=== PATIENT | female | born 1945 | race Caucasian/White ===

== ENCOUNTER 2017-03-12 16:23 | Outpatient (CLI) | payer MEDICARE, BC ==
--- NOTE | 2017-03-14 20:48 | Mammography Report ---
DIGITAL SCREENING MAMMOGRAM: 03/12/2017 CLINICAL INDICATION: A 71-year-old nulliparous patient for screening. COMPARISON: 05/2014, 05/2013, 03/2012, 12/2010. TECHNIQUE: Routine CC and MLO projections were obtained of the breasts. The breasts again demonstrate scattered fibroglandular densities bilaterally. Punctate, typically be nign calcifications are present. No suspicious masses, clustered microcalcifications, or regions of architectural distortion are identified. IMPRESSION: BENIGN FINDINGS. RECOMMENDATION: ROUTINE ANNUAL SCREENING UNLESS OTHERWISE CLINICALLY INDICATED. BIRADS CATEGORY: 2, BENIGN FINDINGS. STANDARD QUALIFYING STATEMENTS 1. This examination was reviewed with the aid of Computed-Aided Detection (CAD). 2. A negative or benign imaging report should not delay biopsy if clinically suspicious findings are present. Consider surgical consultation if warranted. More than 5% of cancers are not identified b y imaging. 3. Dense breasts may obscure an underlying neoplasm. JOB #: [id number] EXT JOB #:[id number]
== END 2017-03-12 16:24 | disposition home or self-care (01) ==
LOC: DI 16:23
PROVIDERS: ATTEND Family Medicine
DX: Z12.31 Encounter for screening mammogram for malignant neoplasm of breast (principal)
CPT/HCPCS: 77067

== ENCOUNTER 2018-09-05 13:09 | Outpatient (CLI) | payer MEDICARE, BC | END 2018-09-05 13:10 | disposition home or self-care (01) | LOC: LAB.F 13:09 | PROVIDERS: ATTEND Family Medicine | DX: E03.9 Hypothyroidism, unspecified (principal) | CPT/HCPCS: 36415; 84443 ==

== ENCOUNTER 2022-03-22 11:19 | Outpatient (CLI) | payer MEDICARE, BC ==
--- NOTE | 2022-03-23 10:37 | Mammography Report ---
BILATERAL DIGITAL SCREENING MAMMOGRAM 3D/2D WITH EXAGGERATED CC: 03/22/2022 CLINICAL: Routine screening. Comparison is made to exams dated: 03/12/2017 mammogram and 05/21/2014 mammogram - [facility]. There are scattered areas of fibroglandular density in both breasts (category b / 25%-50% glandular t issue). No significant masses, calcifications, or other findings are seen in either breast. There has been no significant interval change. IMPRESSION: NEGATIVE There is no mammographic evidence of malignancy. A 1 year screening mammogram is recommended. Based on the Tyrer Cuzick model (a risk assessment model) the patients lifetime risk is 5.4% and her 10 year risk is 4.9%. According to the ACR, ACS, and NCCN guidelines, an annual breast MRI exam felicia g with mammogram is recommended if the patients lifetime risk is 20% or greater. This exam was interpreted at Station ID: [id number]. NOTE: For mammograms, a report in lay terms will be sent to the patient. Approximately 15% of breast malignancies will not be visualized mammographically. In the management of a palpable breast mass, a negative mammogram must not discourage biopsy of a clinically suspicious lesion. Electronically Signed By: Robert crooks/denisse:03/22/2022 13:02:02 ACR BI-RADS Category 1: Negative 3341F PARENCHYMAL PATTERN: (A) - The breast(s) demonstrate(s) scattered fibroglandular densities. BI-RADS CATEGORY: (1) - 1 RECOMMENDATION: (ANNUAL) - Recommend routine annual screening mammography. [id number] 1 year screening LATERALITY: (B)
== END 2022-03-22 11:20 | disposition home or self-care (01) ==
LOC: DI 11:19
DX: Z12.31 Encounter for screening mammogram for malignant neoplasm of breast (principal)

== ENCOUNTER 2022-06-01 07:57 | Outpatient (CLI) | payer MEDICARE, BC ==
--- NOTE | 2022-06-01 11:41 | Ultrasound Report ---
PROCEDURE: Pelvic w/Transvaginal INDICATIONS: POSTMENOPAUSAL BLEEDING TECHNIQUE: Real-time scanning was performed of the pelvic organs, with image documentation. Additional endovagi nal scanning was necessary due to incomplete visualization of the adnexal and endometrial structures by transabdominal scanning. COMPARISON: None. FINDINGS: Uterus: Uterus is anteverted and normal in size at 7.2 x 4.2 x 6 cm. The myometrium is heterogeneou s. The endometrium measures 22 mm in combined thickness. The endometrium is heterogeneous and thick ened. This signal does not appear to extend beyond the myometrium. A nabothian cyst is present. Ovaries: Ovaries not visualized due to overlying bowel gas. Other: No pathologic free abdominal or pelvic fluid. IMPRESSION: Thickened and heterogeneous endometrium, measuring 22 mm. Abnormal signal does not exten d beyond the myometrium. Recommend tissue sampling, as malignancy and hyperplasia are considerations. Reviewed by: Davonte Alexander on 06/01/2022 11:39 AM PST Approved by: Davonte Alexander on 06/01/2022 11:39 AM PST Station ID: [id number]
== END 2022-06-01 07:58 | disposition home or self-care (01) ==
LOC: DI 07:57
PROVIDERS: ATTEND Obstetrics & Gynecology
DX: R93.89 Abnormal findings on diagnostic imaging of other specified body structures (principal); N95.0 Postmenopausal bleeding

== ENCOUNTER 2022-06-19 09:55 | Day surgery (SDC) | payer MEDICARE, BC ==
[~2022-06-19 09:55] MED LIST: miSOPROStoL 200 MCG TABLET ONE
[2022-06-19] MEDS ORDERED: LACTATED RINGERS 1,000 ML IV ONE ×2 (09:57→12:01)
[2022-06-19] MEDS ORDERED: fentaNYL 100 MCG/2 ML VIAL ONE ×2 (10:44→12:23)
[2022-06-19] MEDS ORDERED: PROPOFOL 200 MG/20 ML VIAL IVP ONE ×2 (10:45→11:26)
[2022-06-19] MEDS ORDERED: ONDANSETRON 4 MG/2 ML VIAL ONE (10:45)
[2022-06-19] MEDS ORDERED: DEXAMETHASONE 4 MG/ML VIAL ONE (10:45)
--- NOTE | 2022-06-19 10:47 | ANESTHESIA ---
Pre-Anesthesia VS, & Labs - Diagnosis post menopausal bleeding - Procedure hysteroscopy, D&C Vital Signs: Temp Pulse Resp BP Pulse Ox O2 Flow Rate 36.5 C 85 16 181/89 H 99 06/19/22 10:04 06/19/22 10:04 06/19/22 10:04 06/19/22 10:04 06/19/22 10:04 Height: 5 ft 7 in Weight (kg): 108 kg Body Mass Index: 37.3 BMI Classification: Obese - NPO >8 hours - Is Patient ?: No Home Medications and Allergies Levothyroxine Sodium [Synthroid] 137 mcg PO DAILY 04/25/17 Allergies/Adverse Reactions: Allergies Allergy/AdvReac Type Severity Reaction Status Date / Time No Known Drug Allergies Allergy Verified 06/12/22 13:54 Anes History & Medical History - Anesthetic History Anesthesia Complications: reports: No previous complications Family history of Anesthesia Complications: Denies Family history of Malignant Hyperthermia: Denies - Medical History Cardiovascular: reports: Hypertension Pulmonary: reports: None Gastrointestinal: reports: Colon polyps Urinary: reports: None Musculoskeletal: reports: Osteoarthritis Endocrine/Autoimmune: reports: HyPOthyroidism Skin: reports: None - Surgical History General: reports: Colonoscopy Eyes Ears Nose Throat (EENT): reports: Tonsil/Adenoidectomy Gynecologic: reports: Dilation and currettage Exam General: Alert, Oriented x3, Cooperative Dental: WNL Mouth Openin Fingerbreadth Neck Mobility: Normal Mallampati classification: II Thyromental Distance: less than 4 cm Respiratory: Lungs clear Cardiovascular: Regular rate Plan Anesthesia Type: General Consent for Procedure(s) Verified and Reviewed: Yes Code Status: Attempt Resuscitation ASA classification: 2-Mild systemic disease Is this case an emergency?: No
[2022-06-19] MEDS ORDERED: METOCLOPRAMIDE 10 MG/2 ML VIAL IVP PRN (10:50)
[2022-06-19] MEDS ORDERED: HYDROmorphone 0.5 MG/0.5 ML SYRINGE IVP PRN (10:50)
[2022-06-19] MEDS ORDERED: fentaNYL 100 MCG/2 ML VIAL IVP PRN (10:50)
[2022-06-19] MEDS ORDERED: MORPHINE 2 MG/ML CARPUJECT IVP PRN (10:50)
[2022-06-19] MEDS ORDERED: ePHEDrine 50 MG/ML VIAL IVP PRN (10:50)
[2022-06-19] MEDS ORDERED: ATROPINE ABBOJECT 1 MG/10 ML SYRINGE IVP PRN (10:50)
[2022-06-19] MEDS ORDERED: NALOXONE 0.4 MG/ML VIAL IVP PRN (10:50)
[2022-06-19] MEDS ORDERED: ONDANSETRON 4 MG/2 ML VIAL IVP PRN (10:50)
[2022-06-19] MEDS ORDERED: LACTATED RINGERS 1,000 ML IV SCH (11:00)
--- NOTE | 2022-06-19 12:23 | OPERATIVE REPORT ---
Operative Report - General Procedure Date: 06/19/22 Planned Procedure: Dilation, curettage, hysteroscopy Pre-Op Diagnosis: Postmenopausal bleeding, thickened endometrium Procedure Performed: Dilation, curettage, hysteroscopy Post Op Diagnosis: Postmenopausal bleeding, thickened endometrium - Procedure Note Primary Surgeon: Izabel Xavier DO Anesthesia Provider: Karen Canales CRNA Pathology: Endometrial curettings Estimated Blood Loss (mL): 20 Indications: Postmenopausal bleeding, thickened endometrium Findings: Polypoid tissue, proliferative endometrium Complications: None - Other Other Information/Narrative: Patient taken to OR where anesthesia obtained without difficulty. Placed in dorsal lithotomy position in Blaine stirrups. Prepped and draped in sterile fashion. Price catheter inserted and bladder drained and catheter removed. Matheny speculum placed in vagina. Posterior lip of cervix grasped with single tooth tenaculum. Uterus sounded to 8cm. Cervix dilated to accommodate Myosure hysteroscope. Hysteroscope introduced into cavity and aforementioned findings noted. Lite device used to obtained EMC and remove polypoid tissue. Hysteroscope removed. Sharp curettage performed. Tenaculum removed, hemostasis. Speculum removed. Tolerated procedure well. Counts correct x2. Taken to PACU in stable condition. Fluid deficit 50cc.
[2022-06-19 13:15] VITALS: BP 182/78
--- NOTE | 2022-06-20 08:06 | ANESTHESIA POST OP EVALUATION ---
Anesthesia Post Eval - Post Anesthesia Eval Vitals: Last Vital Signs Temp 36.2 C L 06/19/22 13:13 Pulse 69 06/19/22 13:13 Resp 16 06/19/22 13:13 BP 182/78 H 06/19/22 13:13 Pulse Ox 97 06/19/22 13:13 O2 Flow Rate CV Function Including HR & BP: Stable Pain Control: Satisfactory Nausea & Vomiting: Negative Mental Status: Baseline Respiratory Status: Airway Patent Hydration Status: Satisfactory Anesthesia Complications: None
== END 2022-06-19 09:56 | disposition home or self-care (01) ==
LOC: SDS 09:55
PROVIDERS: ATTEND Obstetrics & Gynecology
PROC: 0UDB8ZZ Extraction of Endometrium, Via Natural or Artificial Opening Endoscopic (ICD-10-PCS; principal; 2022-06-19 11:30)
DX: C54.1 Malignant neoplasm of endometrium (principal); E03.9 Hypothyroidism, unspecified; I10 Essential (primary) hypertension; E66.9 Obesity, unspecified; Z68.37 Body mass index [BMI] 37.0-37.9, adult; Z87.891 Personal history of nicotine dependence
CPT/HCPCS: 58558; A9270; J7120

== ENCOUNTER 2022-07-10 12:01 | Outpatient (CLI) | payer MEDICARE, BC | END 2022-07-10 12:02 | disposition home or self-care (01) | LOC: RT 12:01 | PROVIDERS: ATTEND Obstetrics & Gynecology Gynecologic Oncology | DX: Z01.818 Encounter for other preprocedural examination (principal) | CPT/HCPCS: 93005 ==

== ENCOUNTER 2023-05-08 10:04 | Outpatient (CLI) | payer MEDICARE, BC ==
[2023-05-08 10:30] LABS: BASOPHILS # (AUTO) 0.1 10^3/uL (0.0-0.1); BASOPHILS % (AUTO) 0.9 %; EOSINOPHILS # (AUTO) 0.2 10^3/uL (0.0-0.7); EOSINOPHILS % (AUTO) 3.1 %; HCT - HEMATOCRIT 43.7 % (37.0-47.0); HGB - HEMOGLOBIN 14.5 g/dL (12.0-16.0); LYMPHOCYTES % (AUTO) 36.9 %; MEAN CORPUSCULAR HEMOGLOBIN 33.3 pg (27.0-31.0); MEAN CORPUSCULAR HGB CONC 33.2 g/dL (32.0-36.0); MEAN CORPUSCULAR VOLUME 100.2 fL (81.0-99.0); MEAN PLATELET VOLUME 9.4 fL (7.9-10.8); MONOCYTES # (AUTO) 0.5 10^3/uL (0.0-1.0); MONOCYTES % (AUTO) 8.3 %; NEUTROPHILS # (AUTO) 2.8 10^3/uL (1.5-6.6); NEUTROPHILS % (AUTO) 50.6 %; PLT - PLATELET COUNT 211 10^3/uL (130-450); RED BLOOD COUNT 4.36 10^6/uL (4.20-5.40); RED CELL DISTRIBUTION WIDTH 11.7 % (12.0-15.0); WHITE BLOOD COUNT 5.5 x10^3/uL (4.8-10.8)
[2023-05-08 10:38] LABS: ESTIMATED AVERAGE GLUCOSE 105 mg/dL (70-100); HEMOGLOBIN A1c% 5.3 % (4.27-6.07)
[2023-05-08 10:45] LABS: ALBUMIN 4.2 g/dL (3.2-5.5); ALBUMIN/GLOBULIN RATIO 1.4 (1.0-2.2); ALKALINE PHOSPHATASE 74 IU/L (42-121); ALT ALANINE AMINOTRANSFERASE 22 IU/L (10-60); AST ASPARTATE AMINOTRANSFERASE 23 IU/L (10-42); BILIRUBIN,TOTAL 0.7 mg/dL (0.2-1.0); BUN - BLOOD UREA NITROGEN 15 mg/dL (6-20); CALCIUM 9.6 mg/dL (8.5-10.3); CARBON DIOXIDE - CO2 32 mmol/L (21-32); CHLORIDE 101 mmol/L (101-111); CHOL/HDL RATIO 3.1 (<4.4); CHOLESTEROL 235 mg/dL; CREATININE 0.8 mg/dL (0.6-1.3); GFR - MDRD 70 (>89); GLUCOSE 124 mg/dL (74-104); HDL CHOLESTEROL 77 mg/dL; LDL CHOLESTEROL,CALCULATED 136 mg/dL; LDL/HDL RATIO 1.8 (<4.4); POTASSIUM 4.5 mmol/L (3.5-4.5); SODIUM 139 mmol/L (135-145); TOTAL PROTEIN 7.2 g/dL (6.4-8.9); TRIGLYCERIDES 111 mg/dL (48-352); VLDL CHOLESTEROL 22 mg/dL
[2023-05-08 11:07] LABS: THYROID STIMULATING HORMONE 1.18 uIU/mL (0.34-5.60)
== END 2023-05-08 10:05 | disposition home or self-care (01) ==
LOC: LAB 10:04
PROVIDERS: ATTEND Family Medicine
DX: I10 Essential (primary) hypertension (principal); C55 Malignant neoplasm of uterus, part unspecified; E03.9 Hypothyroidism, unspecified; R73.9 Hyperglycemia, unspecified
CPT/HCPCS: 36415; 80053; 80061; 83036; 83721; 84443; 85025

== ENCOUNTER 2023-11-07 11:53 | Outpatient (CLI) | payer MEDICARE, BC ==
[2023-11-07 12:04] LABS: BASOPHILS % (AUTO) 0.9 %; EOSINOPHILS # (AUTO) 0.2 10^3/uL (0.0-0.7); EOSINOPHILS % (AUTO) 3.5 %; HCT - HEMATOCRIT 42.8 % (37.0-47.0); HGB - HEMOGLOBIN 14.2 g/dL (12.0-16.0); LYMPHOCYTES # (AUTO) 1.5 10^3/uL (1.5-3.5); LYMPHOCYTES % (AUTO) 33.6 %; MEAN CORPUSCULAR HEMOGLOBIN 33.4 pg (27.0-31.0); MEAN CORPUSCULAR HGB CONC 33.2 g/dL (32.0-36.0); MEAN CORPUSCULAR VOLUME 100.7 fL (81.0-99.0); MEAN PLATELET VOLUME 9.4 fL (7.9-10.8); MONOCYTES # (AUTO) 0.4 10^3/uL (0.0-1.0); MONOCYTES % (AUTO) 8.1 %; NEUTROPHILS # (AUTO) 2.5 10^3/uL (1.5-6.6); NEUTROPHILS % (AUTO) 53.9 %; PLT - PLATELET COUNT 201 10^3/uL (130-450); RED BLOOD COUNT 4.25 10^6/uL (4.20-5.40); RED CELL DISTRIBUTION WIDTH 11.9 % (12.0-15.0); WHITE BLOOD COUNT 4.6 x10^3/uL (4.8-10.8)
[2023-11-07 12:31] LABS: CALCIUM 9.5 mg/dL (8.5-10.3); CREATININE 0.8 mg/dL (0.6-1.3); POTASSIUM 3.8 mmol/L (3.5-4.5)
[2023-11-07 12:35] LABS: THYROID STIMULATING HORMONE 1.21 uIU/mL (0.34-5.60)
== END 2023-11-07 11:54 | disposition home or self-care (01) ==
LOC: LAB 11:53
PROVIDERS: ATTEND Family Medicine
DX: I10 Essential (primary) hypertension (principal); E03.9 Hypothyroidism, unspecified
CPT/HCPCS: 36415; 80048; 84443; 85025

== ENCOUNTER 2023-11-27 12:33 | Outpatient (CLI) | payer MEDICARE, BC ==
--- NOTE | 2023-11-28 13:14 | MRI Report ---
PROCEDURE: Lumbar Spine WO INDICATIONS: LUMBAR STENOSIS TECHNIQUE: Noncontrast sagittal T1 spin echo and T2 fast echo, sagittal STIR, axial T1 and T2 fast spin echo thr ough the lumbar spine. In cases with scoliosis, additional coronal T2 fast spin echo may be performe d. COMPARISON: None. FINDINGS: Image quality: Excellent. Alignment and Curvature: Grade 1 anterolisthesis of L4 and L5. Mild dextrocurvature. Bone Marrow: Modic type I degenerative endplate changes at L5-S1. Mild edema around the left L5-S1 f acet joint, likely stress related. Mild Modic 2 degenerative endplate changes at other levels. Marrow is of normal overall signal. No acute vertebral body compression fractures. Spinal Cord: Conus medullaris terminates at the L1 level. Visualized cord demonstrates normal signa l and size. Paraspinous Soft Tissues: No paravertebral masses. T12-L1: Normal in appearance. L1-L2: Normal in appearance. L2-L3: Disc desiccation and mild disc height loss. Mild posterior disc bulge. Facet arthropathy. M ild central canal stenosis. No neuroforaminal stenosis. L3-L4: Disc desiccation and mild disc height loss. Mild diffuse disc bulge, asymmetric to the left. Facet arthropathy and thickening of the ligamentum flavum. Mild central canal stenosis. Mild left an d no right neural foraminal stenosis. L4-L5: Anterolisthesis. Facet arthropathy and thickening of ligamenta flava. Disc desiccation and m ild height loss. Mild central canal stenosis. No significant neural foraminal stenosis. L5-S1: Disc desiccation. Facet arthropathy. No central canal stenosis. Mild bilateral neuroforamina l stenosis. IMPRESSION: 1.Mild degenerative changes of the lumbar spine as described above. 2.Mild multilevel central canal stenosis. 3.Mild neuroforaminal stenosis at L3-L4 and L5-S1. Reviewed by: Darnell Gates MD on 11/28/2023 1:12 PM PDT Approved by: Darnell Gates MD on 11/28/2023 1:12 PM PDT Station ID: [id number]
== END 2023-11-27 12:34 | disposition home or self-care (01) ==
LOC: DI 12:33
PROVIDERS: ATTEND Orthopaedic Surgery Orthopaedic Surgery of the Spine
DX: M48.062 Spinal stenosis, lumbar region with neurogenic claudication (principal); M48.07 Spinal stenosis, lumbosacral region; M47.26 Other spondylosis with radiculopathy, lumbar region; M47.27 Other spondylosis with radiculopathy, lumbosacral region